=== PATIENT | female | born 1975 | race Caucasian/White ===

== ENCOUNTER 2018-11-16 22:01 | Emergency (ER) | payer BC, SELFPAY ==
[2018-11-16 22:02] VITALS: BP 138/88; PULSE 91; RESP 16; TEMP 37.1; O2SAT 98; BMI 28.3
--- NOTE | 2018-11-16 22:35 | ED.VISSUMM ---
- ER Visit Summary Date of Service: 11/16/18 Chief Complaint: Left foot injury History of Present Illness: The patient is a 43 F who presents with pain and swelling in her left foot that began today. Patient states she tripped while walking in her garage and twisted her left foot. Patient denies any paresthesias or weakness. Patient states her pain is worse with weightbearing and ambulation. Patient denies any other injuries. Physical Examination: Vital signs are stable. Patient is afebrile. Patient is in no acute distress. Musculoskeletal exam reveals tenderness and edema over the base of the fifth metatarsal of the left foot. Is no obvious deformity noted. Pedal pulses are equal bilaterally. Sensation was intact to light touch in all digits. Capillary refill was less than 2 seconds in all digits. There is no tenderness over the medial or lateral malleolus. There is no tenderness over the proximal fibula. Test Results: X-rays of the left foot were obtained. There is a nondisplaced fracture of the base of the fifth metatarsal. This was interpreted by the radiologist and reviewed by myself. Emergency Department Course and Treatment: Patient was given a boot orthosis. Patient was given a prescription for a short-term course of Compton. Patient was instructed to ice and elevate the left foot. Patient was instructed to use her crutches as needed for weightbearing. Patient was instructed to follow-up with Dr. López from orthopedics. Patient understood and was agreeable with the plan. All questions were answered. Disposition: Discharge home Impression: Acute fracture fifth metatarsal left foot This note was generated with [employer] dictation software. It may contain incorrect words, spelling, and punctuation that were not noted in review of the chart prior to signing ED Disposition - Plan for ED Patient: Disposition: Home or Assisted Living Diagnosis: Fracture of fifth metatarsal bone of left foot Instructions: ED Fx Foot Prescriptions: Hydrocodone Bitart/Apap 5-325 [Compton 5MG-325MG] 1 tab PO Q6H PRN PRN 3 Days #10 tab PRN Reason: Pain Referrals: Sam Schaefer MD [Primary Care Provider] - Gabriel López MD [STAFF PHYSICIAN] - 3-5 Days
--- NOTE | 2018-11-16 22:47 | RAD_ITS ---
STUDY: X-RAY - LEFT FOOT CLINICAL: Female, 43 years old. Lateral foot pain after twisting injury. TECHNIQUE: 3 view(s) of the foot. COMPARISON: None. FINDINGS: Normal talus, calcaneus, and tarsal bones. Normal visualized subtalar, talonavicular, calcaneocuboid, tarsal and tarsometatarsal articulations. Acute nondisplaced fracture through the base of the fifth metatarsal which extends to the medial portion of the fifth tarsometatarsal joint, not extending across the full diaphysis. Normal metatarsophalangeal joint of the great toe. Normal tibial and fibular sesamoid bones. Normal interphalangeal joint of the great toe. Normal phalanges of the great toe. Normal second through fifth metatarsophalangeal joints. Normal interphalangeal joints and phalanges of the lesser toes. The soft tissue structures are unremarkable. RAD/Foot min 3 Views IMPRESSION: Acute nondisplaced avulsion type fracture at the base of the fifth metatarsal. Electronically Signed: Sunitha Rey MD at 23:00 EDT , Service support ,
[2018-11-16 23:40] VITALS: RESP 16
== END 2018-11-16 23:41 | disposition home or self-care (01) ==
PROVIDERS: Emergency Provider Emergency Medicine; Family Provider Family Medicine; PCP Family Medicine
DX: S92.355A Nondisplaced fracture of fifth metatarsal bone, left foot, initial encounter for closed fracture (principal); G35 Multiple sclerosis; Z79.899 Other long term (current) drug therapy; X50.1XXA Overexertion from prolonged static or awkward postures, initial encounter; Y93.01 Activity, walking, marching and hiking; Y92.008 Other place in unspecified non-institutional (private) residence as the place of occurrence of the external cause; Y99.8 Other external cause status
CPT/HCPCS: 73630; 99283

== ENCOUNTER 2025-01-27 06:46 | Emergency (ER) | payer BC, SELFPAY ==
[2025-01-27 06:47] VITALS: BP 129/89; PULSE 76; RESP 20; TEMP 36.4; O2SAT 100; BMI 26.6
--- NOTE | 2025-01-27 07:06 | CT_ITS ---
EXAM: NONCONTRAST CT SCAN OF THE HEAD CLINICAL HISTORY: Headache, nausea, dizziness for a week COMPARISON: None TECHNIQUE: Serial axial series through the head were obtained without contrast. 2-D coronal and sagittal reformats were then obtained. DLP = 779.24 mGy-cm FINDINGS: Brain: There is no acute large territorial infarct, intracranial hemorrhage, midline shift or mass effect. The sella and pineal gland regions appear unremarkable. There is no evidence of cerebellar tonsillar herniation. Ventricles: There is no acute hydrocephalus. Basilar cisterns are patent. Paranasal sinuses: Well-aerated Mastoid air cells: Well-aerated. Calvarium: The bony calvarium is intact. Orbits: The bilateral globes are symmetric, without retrobulbar compressive mass lesion or hemorrhage. CT/Brain/Head without Contrast IMPRESSION: No acute intracranial pathology. Reading [facility]
--- NOTE | 2025-01-27 07:06 | EDS_ITS ---
HPI History of Present Illness Chief Complaint: Headache Informant: patient Onset/Context/Timing Onset: Days (Approximately 1 week.) Context: Gradual Timing: Intermittent Quality -Headache: Negative for Similar Prior Headaches Current Severity: Moderate Maximum Severity: Moderate Associated Symptoms/Injury Associated Symptoms: Positive for Nausea and Vomiting; Negative for Fever, Numbness, Tingling, Visual Changes or Visual Loss Narrative Narrative: 49-year-old female history of MS. States she has had a headache for about a week. Back of her head down the back of her neck. Denies any fall injury or trauma. She is on no blood thinners. States that the pain is intermittent. Worse supine. Associated with recent nausea and vomiting. No family history of intracranial bleeds, aneurysms or brain surgery. No history of migraines. No neurological symptoms otherwise. Prior similar symptoms: No Recent Illness/Hospitalization: No PFSH PFSH Home Medications ?Medication ?Instructions ?Recorded ?Last Taken ?Type cholecalciferol (vitamin D3) 125 5,000 unit PO DAILY 0 11/16/18 Unknown History mcg (5,000 unit) capsule cod liver oil 1 ea PO DAILY 11/16/18 Unkno wn History multivitamin with minerals 1 ea PO DAILY 11/16/18 Unkn own History (Multiple Vitamin-Minerals tablet) Allergy/AdvReac Type Severity Reaction Status Date / Time No Known Allergies Allergy Verified 01/27/25 06:47 Social History Smoking Status: Never smoker ROS ROS ED ROS Narrative Headache. Nausea vomiting. Constitutional Constitutional ED: Denies chills or fever(s) Eyes Eyes: Denies blurry vision ENT ENT ED: Denies ear pain Cardiovascular Cardiovascular: Denies chest pain Respiratory/Chest Respiratory/Chest: Denies cough Gastrointestinal Gastrointestinal: Reports nausea and vomiting; Denies abdominal pain or constipation Genitourinary Genitourinary ED: Denies dysuria or hematuria Musculoskeletal Musculoskeletal: Denies arthralgias or back pain Integumentary Denies abscess Neurologic Neurologic: Reports headache(s) Psychiatric Psychiatric: Denies anxiety or depression Endocrine Endocrinology: Denies polydipsia, polyphagia or polyuria Hematologic/Lymphatic Hematologic/Lymphatic: Denies easy bleeding or easy bruising Allergic/Immunologic Allergic/Immunologic ED: Denies mouth swelling, tongue swelling or urticaria EXAM Physical Exam Narrative Exam Narrative: Well-appearing 49-year-old female. Vital signs stable afebrile. She is not lying supine in a darkened room 1 family member present. H EENT exam pupils round react light. Extra motions are intact. Moist mucous membranes. No facial droop. Normal speech. No trauma. Neck nontender. No meningismus. No lymphadenopathy. Able to flex chin to chest. Back nontender. Lungs clear equal symmetrical bilaterally. Heart regular rhythm rate about 75 no murmur. Chest wall and ribs nontender. Abdomen soft nontender. Moving all 4 extremities. Normal strength. Normal range of motion. Neurologically she is awake alert. NIH is 0. Fingertip to nose and heel tineo within normal limits. No drift. Normal strength and sensation. Normal speech. Const Vital Signs: 01/27/25 06:47 01/27/25 08:47 Temperature 97.6 F L Temperature Source Oral Pulse Rate 76 75 Respiratory Rate 20 H 16 Blood Pressure 129/89 H 120/72 Blood Pressure Mean 102 88 Pulse Ox 100 100 Oxygen Delivery Method Room Air Positive well nourished and well developed; Negative for obese, cachectic, contractures or unkempt General Appearance ED: well developed and NAD; Negative for unkempt, cachectic, contractures, cyanotic, diaphoretic or pallor Nutritional Appearance: Negative for cachectic or obese HEENT Reports moist mucous membranes atraumatic; Negative for trauma, tenderness, temporal artery tenderness or vesicular rash Face and Sinus: Negative for sinus tenderness Eyes PERRL and EOMs intact bilaterally Neck no lymphadenopathy, supple, no meningeal signs and no JVD General: Negative for tenderness Resp normal respiratory effort and clear to auscultation bilaterally Effort and Inspection: Negative for retractions Auscultation: Negative for rales, rhonchi, wheezes or diminished lung sounds Cardio regular rate, regular rhythm, S1 normal heart sound, S2 normal heart sound and no murmurs GI non-tender and non-distended Palpation: soft; Negative for firm, tender or guarding Back/Spine no CVA tenderness General Back: Negative for CVA tenderness Cervical Spine: Negative for cervical spine tenderness Thoracic Spine / Upper Back: Negative for thoracic spinal tenderness Lumbar Spine / Lower Back: Negative for lumbar spinal tenderness Extremity normal to inspection and full ROM General Extremety ED: Negative for edema or tenderness General Extremity: Negative for edema Neuro oriented x3 and CN's II-XII intact bilaterally Sensorium / Orientation: awake, alert, oriented to person, oriented to place and oriented to time; Negative for orientation impaired Coordination / Balance: [id number] test normal and [id number] test normal Speech: speech normal Motor Exam: strength 5/5 throughout Psych mental status grossly normal Appearance: Negative for unkempt Skin General Skin Exam: elasticity normal; Negative for turgor normal, jaundice or pallor Lesions: no lesions Rashes: no rashes MDM MDM MDM Narrative Medical decision making narrative: 49-year-old female with MS is at a weeklong history of a posterior headache. Exam and neurologic exam are normal. She will be treated with IV fluids, Zofran, Toradol. CAT scan of her brain. Screening labs. Clinically I do not think this is meningitis. It only is a sinus infection. There is no history of trauma. There is no family history of intracranial bleeds or aneurysms. Repeat exam at 9:37 AM patient looks a lot better. States she feels much improved. Headache resolved. She is smiling. Her repeat exam is normal and unchanged. Her neurologic exam remains normal. We discussed her test results. She will be discharged home with outpatient follow-up. History & Record Review Discussion w/independent historian: Patient and Family Additional record(s) reviewed:: No prior records Lab Data Attestation: I reviewed the patient's lab results. Lab results narrative: CBC white count of 5. H&H 14 and 41. Platelets 341. Electrolytes shows sodium 137. Gap 12. Normal BUN and creatinine. Glucose 106 CAT scan of the brain no acute process. As read by the radiologist and reviewed by me. Labs: Laboratory Results - last 24 hr 01/27/25 07:02 WBC 5.2 RBC 4.66 Hgb 14.4 Hct 41.7 MCV 89.5 MCH 30.9 MCHC 34.5 RDW Std Deviation 41.3 RDW Coeff of [place] 12.4 Plt Count 341 MPV 9.8 Immature Gran % (Auto) 0.200 Neut % (Auto) 59.7 Lymph % (Auto) 28.0 Cedar % (Auto) 8.3 Eos % (Auto) 2.3 Baso % (Auto) 1.5 H Absolute Neuts (auto) 3.1 Absolute Lymphs (auto) 1.46 Nucleated RBC % 0 Sodium 137 Potassium 4.0 Chloride 104 Carbon Dioxide 21.2 Anion Gap 12 BUN 15 Creatinine 0.76 Estim Creat Clear Calc 81.56 Est GFR (MDRD) Non-Af 97 BUN/Creatinine Ratio 19.9 Glucose 106 H Calcium 9.3 Radiography Diagnostic Testing: Clinical Impression(s) from Imaging Studies Brain CT 01/27/25 07:06 IMPRESSION: No acute intracranial pathology. Reading [facility] Discharge Plan Triage Chief Complaint: Headache ED Provider: Austin Aguilar Dx/Rx/DC Orders Clinical Impression: Headache, Hx of multiple sclerosis Prescriptions: No Action cod liver oil 1 EACH capsule 1 ea PO DAILY Multiple Vitamin-Minerals 1 EACH tablet 1 ea PO DAILY cholecalciferol (vitamin D3) 5,000 UNIT capsule 5,000 unit PO DAILY Primary Care Provider: Sam Schaefer Referrals: Sam Schaefer MD [Primary Care Provider] - 3-5 Days if not improving Activity Restrictions/Additional Instructions: Headache of uncertain cause. Plenty of fluids and rest. Motrin and Tylenol for pain. Follow-up with your doctor if not improving. Return if worse. Print Language: [place] Disposition Disposition: Home, Self Care
[2025-01-27 07:20] LABS: Hematocrit 41.7 % (37-47); Hemoglobin 14.4 g/dL (12.0-15.0); Immature Granulocytes Count 0.010 X10^3/uL (0.0-0.0); Mean Corp Hgb Conc 34.5 g/dL (32-36); Mean Corpuscular Volume 89.5 fL (81-99); Mean Platelet Vol. 9.8 fl (6.2-12.0); NRBC Flagged by Analyzer 0 % (0-5); Platelet Count 341 K/mm3 (150-450); RBC Distribution Width CV 12.4 % (11.6-14.6); RBC Distribution Width SD 41.3 fl (35.1-43.9); Red Blood Count 4.66 M/mm3 (4.2-5.4); White Blood Count 5.2 K/mm3 (4.4-11.0)
[2025-01-27] MEDS: 0.9% Normal Saline (1000mL) 1,000 ML 1000 ML IV (07:27)
[2025-01-27] MEDS: Ketorolac 30 MG/ML Syringe IV (07:28)
[2025-01-27 07:53] LABS: Anion Gap 12 (5-15); BUN 15 mg/dL (4-19); BUN/Creat Ratio 19.9 RATIO (10-20); Calcium,Total 9.3 mg/dL (7.6-11.0); Carbon Dioxide 21.2 mmol/L (21.0-32.0); Chloride 104 mmol/L (98-108); Estimated Creatinine Clearance 81.56 ml/min (50-250); Glucose 106 mg/dL (70-99); Potassium 4.0 mmol/L (3.3-5.1)
[2025-01-27 08:47] VITALS: BP 120/72; PULSE 75; RESP 16; O2SAT 100
[2025-01-27 09:57] VITALS: BP 120/72; PULSE 75; RESP 16; TEMP 36.7; O2SAT 100
== END 2025-01-27 09:58 | disposition home or self-care (01) ==
PROVIDERS: Emergency Provider Emergency Medicine; PCP Family Medicine; Visit Provider Emergency Medicine
DX: R51.9 Headache, unspecified (principal); R11.2 Nausea with vomiting, unspecified
CPT/HCPCS: 70450; 80048; 85025; 96361; 96374; 96375; 99284; A4216; J2405